=== PATIENT | female | born 1955 | race Caucasian/White ===

== ENCOUNTER → 2022-07-30 | Outpatient (CLI) | payer MEDICARE ==
[~2022-07-30] MED LIST: CENT1TAB PO; D-MAPOW4 XX; IBUP-1114 PO; LETR2.5T2 PO; OMEP-173 PO; POTA-151 PO; ROPI0.253 PO
== END ==
LOC: M WHC 07:44
PROVIDERS: ATTEND Specialist
DX: Z85.3 Personal history of malignant neoplasm of breast (principal); Z53.9 Procedure and treatment not carried out, unspecified reason

== ENCOUNTER 2022-08-23 15:49 | Inpatient (IN) | payer MEDICARE ==
[~2022-08-23] VITALS: Ht 157.5 cm; Wt 48.0 kg
[~2022-08-23 15:49] MED LIST changes: -FLUO10CA18 PO; -HYDR-643 PO; -IBUP-1764 PO; -POTA1TAB24 PO
[2022-08-23] MEDS ORDERED: HYDR-643 PO ×2 (16:04→18:48)
[2022-08-23] MEDS ORDERED: FLUO10CA18 PO (16:04)
[2022-08-23 16:44] LABS: BASO % 0.6 % (0.0-1.0); EOS # 0.1 10^3/uL (0.0-0.5); HEMATOCRIT 36.2 % (36.0-47.0); HEMOGLOBIN 12.6 g/dl (12.0-15.5); LYMPH # 0.9 10^3/uL (1.5-5.0); MEAN CORPUSCULAR HGB CONC 34.8 g/dl (32.0-36.5); MEAN CORPUSCULAR VOLUME 89.2 fl (80.0-96.0); MONO # 0.6 10^3/uL (0.0-0.8); NEUTROPHILS # 3.6 10^3/uL (1.5-8.5); NEUTROPHILS % 69.2 % (36.0-66.0); RED BLOOD COUNT 4.06 10^6/uL (4.00-5.40); WHITE BLOOD COUNT 5.2 10^3/uL (4.0-10.0)
[2022-08-23 17:26] LABS: PLATELET COUNT, AUTOMATED 73 10^3/uL (150-450)
[2022-08-23 17:51] LABS: ALBUMIN 3.3 GM/DL (3.2-5.2); ALT/SGPT 78 U/L (12-78); BILIRUBIN,DIRECT 0.1 MG/DL (0.0-0.2); BILIRUBIN,TOTAL 0.4 MG/DL (0.2-1.0); BLOOD UREA NITROGEN 7 MG/DL (7-18); CALCIUM LEVEL 8.5 MG/DL (8.8-10.2); CARBON DIOXIDE LEVEL 23 MEQ/L (21-32); CHLORIDE LEVEL 115 MEQ/L (98-107); CREATININE FOR GFR 0.83 MG/DL (0.55-1.30); FREE T4 1.08 NG/DL (0.76-1.46); GLOMERULAR FILTRATION RATE > 60.0 (>45); GLUCOSE, FASTING 131 MG/DL (70-100); PHOSPHORUS LEVEL 1.9 MG/DL (2.5-4.9); POTASSIUM SERUM 2.1 MEQ/L (3.5-5.1); SODIUM LEVEL 145 MEQ/L (136-145); TOTAL PROTEIN 6.9 GM/DL (6.4-8.2)
[2022-08-23] MEDS ORDERED: NEUTRA-PHOS 1.5 GM PACKET PO ONE (17:55)
[2022-08-23] MEDS ORDERED: KCL 10MEQ/100ML SWI (KRUN) 10 MEQ in IV 1 EA IV ONE (17:55)
[2022-08-23] MEDS ORDERED: POTASSIUM CHLORIDE 10MEQ SR TABLET PO ONE (17:55)
[2022-08-23] MEDS ORDERED: ONDANSETRON 4MG 2ML VIAL IV PRN (18:35)
[2022-08-23] MEDS ORDERED: IBUP-1764 PO (18:48)
[2022-08-23] MEDS ORDERED: LETR2.5T2 PO (18:51)
[2022-08-23] MEDS ORDERED: HOME MED LIST COMPLETE! XX SCH (18:55)
[2022-08-23 19:34] LABS: RSV AMPLIFICATION NEGATIVE (NEGATIVE)
[2022-08-23] MEDS ORDERED: rOPINIRole 0.25 MG TAB(REQUIP) PO SCH (21:00)
[2022-08-23] MEDS: POTASSIUM CHLORIDE 10MEQ SR TABLET PO SCH (21:25)
[2022-08-23 21:40] VITALS: BP 162/80
[2022-08-23 23:40] LABS: BLOOD UREA NITROGEN 7 MG/DL (7-18); CALCIUM LEVEL 8.3 MG/DL (8.8-10.2); CARBON DIOXIDE LEVEL 20 MEQ/L (21-32); CHLORIDE LEVEL 117 MEQ/L (98-107); CREATININE FOR GFR 0.67 MG/DL (0.55-1.30); GLOMERULAR FILTRATION RATE > 60.0 (>45); GLUCOSE, FASTING 137 MG/DL (70-100); POTASSIUM SERUM 2.6 MEQ/L (3.5-5.1); SODIUM LEVEL 146 MEQ/L (136-145)
[2022-08-24] VITALS: BP 148/71
[2022-08-24] MEDS ORDERED: POTASSIUM CHLORIDE 10MEQ SR TABLET PO ONE
[2022-08-24] MEDS ORDERED: SODIUM CHLORIDE 0.9% INJ 10 ML SYR IV PRN (02:10)
[2022-08-24 04:00] VITALS: BP 127/58
[2022-08-24 04:08] LABS: HEMATOCRIT 35.7 % (36.0-47.0); MEAN CORPUSCULAR HEMOGLOBIN 30.5 pg (27.0-33.0); MEAN CORPUSCULAR HGB CONC 33.6 g/dl (32.0-36.5); MEAN CORPUSCULAR VOLUME 90.6 fl (80.0-96.0); RED BLOOD COUNT 3.94 10^6/uL (4.00-5.40); WHITE BLOOD COUNT 3.9 10^3/uL (4.0-10.0)
[2022-08-24 04:12] LABS: PLATELET COUNT, AUTOMATED 65 10^3/uL (150-450)
[2022-08-24 04:41] LABS: BLOOD UREA NITROGEN 7 MG/DL (7-18); CALCIUM LEVEL 8.2 MG/DL (8.8-10.2); CARBON DIOXIDE LEVEL 23 MEQ/L (21-32); CHLORIDE LEVEL 118 MEQ/L (98-107); CREATININE FOR GFR 0.67 MG/DL (0.55-1.30); GLOMERULAR FILTRATION RATE > 60.0 (>45); GLUCOSE, FASTING 103 MG/DL (70-100); PHOSPHORUS LEVEL 2.5 MG/DL (2.5-4.9); POTASSIUM SERUM 3.2 MEQ/L (3.5-5.1); SODIUM LEVEL 145 MEQ/L (136-145)
[2022-08-24 07:45] VITALS: BP 157/43
[2022-08-24] MEDS: POTASSIUM CHLORIDE 10MEQ SR TABLET PO SCH (08:14)
[2022-08-24] MEDS: KCL 10MEQ/100ML SWI (KRUN) 10 MEQ in IV 1 EA IV SCH ×2 (08:16→09:30)
[2022-08-24] MEDS ORDERED: LETROZOLE 2.5 MG TAB PO SCH (09:00)
[2022-08-24] MEDS ORDERED: SODIUM CHLORIDE 0.9% INJ 10 ML SYR IV SCH (09:00)
[2022-08-24] MEDS ORDERED: FLUoxetine 10 MG CAP PO SCH (09:00)
[2022-08-24] MEDS ORDERED: POTA1TAB24 PO (10:56)
[2022-08-24] MEDS ORDERED: OMEPRAZOLE 20MG CAP PO SCH (21:00)
== END 2022-08-24 12:07 | disposition home or self-care (01) | DRG 641 ==
LOC: M ED 15:49 → M ED INP 18:35 → ENRESERV 19:50 → M PCU 21:41
PROVIDERS: ADMIT Internal Medicine Nephrology; ATTEND Internal Medicine Nephrology
DX: E87.6 Hypokalemia (principal); F41.9 Anxiety disorder, unspecified; F32.A Depression, unspecified; K21.9 Gastro-esophageal reflux disease without esophagitis; G25.81 Restless legs syndrome; I10 Essential (primary) hypertension; M81.0 Age-related osteoporosis without current pathological fracture; B02.9 Zoster without complications; Z92.21 Personal history of antineoplastic chemotherapy; Z92.3 Personal history of irradiation; Z85.3 Personal history of malignant neoplasm of breast; Z88.0 Allergy status to penicillin; Z91.013 Allergy to seafood; Z91.012 Allergy to eggs; Z91.018 Allergy to other foods; Z88.2 Allergy status to sulfonamides; Z88.8 Allergy status to other drugs, medicaments and biological substances; Z79.899 Other long term (current) drug therapy

== ENCOUNTER → 2022-08-23 | Outpatient (CLI) | payer MEDICARE ==
[~2022-08-23] MED LIST changes: +FLUO10CA18 PO; +HYDR-643 PO; +IBUP-1764 PO; +POTA1TAB24 PO
[2022-08-23 13:21] LABS: BASO % 0.8 % (0.0-1.0); EOS # 0.1 10^3/uL (0.0-0.5); EOS % 1.4 % (0.0-3.0); HEMATOCRIT 40.5 % (36.0-47.0); HEMOGLOBIN 13.8 g/dl (12.0-15.5); LYMPH # 0.8 10^3/uL (1.5-5.0); MEAN CORPUSCULAR HEMOGLOBIN 30.9 pg (27.0-33.0); MEAN CORPUSCULAR HGB CONC 34.1 g/dl (32.0-36.5); MEAN CORPUSCULAR VOLUME 90.6 fl (80.0-96.0); MONO # 0.6 10^3/uL (0.0-0.8); MONO % 11.9 % (2.0-8.0); NEUTROPHILS # 3.3 10^3/uL (1.5-8.5); NEUTROPHILS % 68.5 % (36.0-66.0); RED BLOOD COUNT 4.47 10^6/uL (4.00-5.40); WHITE BLOOD COUNT 4.9 10^3/uL (4.0-10.0)
[2022-08-23 13:24] LABS: PLATELET COUNT, AUTOMATED 82 10^3/uL (150-450)
[2022-08-23 14:59] LABS: ALBUMIN 3.5 GM/DL (3.2-5.2); ALT/SGPT 79 U/L (12-78); BILIRUBIN,TOTAL 0.6 MG/DL (0.2-1.0); BLOOD UREA NITROGEN 6 MG/DL (7-18); CALCIUM LEVEL 8.9 MG/DL (8.8-10.2); CARBON DIOXIDE LEVEL 26 MEQ/L (21-32); CHLORIDE LEVEL 112 MEQ/L (98-107); CHOLESTEROL LEVEL 123 MG/DL (<200); CHOLESTEROL RISK RATIO 5.125 (<5); CREATININE FOR GFR 0.77 MG/DL (0.55-1.30); GLOMERULAR FILTRATION RATE > 60.0 (>45); GLUCOSE, FASTING 121 MG/DL (70-100); HDL CHOLESTEROL 24 MG/DL (>40); LDL CHOLESTEROL 74 MG/DL (<100); NON-HDL-C 99 MG/DL; POTASSIUM SERUM 2.1 MEQ/L (3.5-5.1); SODIUM LEVEL 145 MEQ/L (136-145); TOTAL PROTEIN 7.3 GM/DL (6.4-8.2); TRIGLYCERIDES LEVEL 127 MG/DL (<150)
== END ==
LOC: M PLALAB 10:14
PROVIDERS: ATTEND Nurse Practitioner Family
DX: R03.0 Elevated blood-pressure reading, without diagnosis of hypertension (principal)

== ENCOUNTER → 2022-08-30 | Outpatient (REF) | payer MEDICARE ==
[~2022-08-30] MED LIST changes: +FLUO10CA18 PO; +HYDR-643 PO; +IBUP-1764 PO; +POTA1TAB24 PO
[2022-08-30 11:34] LABS: BASO % 0.7 % (0.0-1.0); EOS # 0.1 10^3/uL (0.0-0.5); EOS % 1.3 % (0.0-3.0); HEMOGLOBIN 14.5 g/dl (12.0-15.5); LYMPH # 0.9 10^3/uL (1.5-5.0); LYMPH % 20.6 % (24.0-44.0); MEAN CORPUSCULAR HEMOGLOBIN 30.7 pg (27.0-33.0); MONO # 0.6 10^3/uL (0.0-0.8); MONO % 13.2 % (2.0-8.0); NEUTROPHILS # 2.9 10^3/uL (1.5-8.5); RED BLOOD COUNT 4.73 10^6/uL (4.00-5.40); WHITE BLOOD COUNT 4.5 10^3/uL (4.0-10.0)
[2022-08-30 11:35] LABS: PLATELET COUNT, AUTOMATED 84 10^3/uL (150-450)
[2022-08-30 12:44] LABS: ALBUMIN 3.5 GM/DL (3.2-5.2); ALT/SGPT 95 U/L (12-78); BILIRUBIN,TOTAL 0.6 MG/DL (0.2-1.0); BLOOD UREA NITROGEN 6 MG/DL (7-18); CALCIUM LEVEL 9.3 MG/DL (8.8-10.2); CARBON DIOXIDE LEVEL 25 MEQ/L (21-32); CHLORIDE LEVEL 108 MEQ/L (98-107); CREATININE FOR GFR 0.87 MG/DL (0.55-1.30); GLOMERULAR FILTRATION RATE > 60.0 (>45); GLUCOSE, FASTING 105 MG/DL (70-100); POTASSIUM SERUM 4.9 MEQ/L (3.5-5.1); SODIUM LEVEL 139 MEQ/L (136-145); TOTAL PROTEIN 7.5 GM/DL (6.4-8.2)
== END ==
LOC: M LABDRAWC 10:09 → M PLALAB 10:09
PROVIDERS: ATTEND Registered Nurse
DX: E87.6 Hypokalemia (principal)

== ENCOUNTER → 2022-11-14 | Outpatient (CLI) | payer MEDICARE ==
[2022-11-14 17:39] LABS: BASO % 0.2 % (0.0-1.0); HEMATOCRIT 40.5 % (36.0-47.0); HEMOGLOBIN 13.5 g/dl (12.0-15.5); LYMPH # 0.7 10^3/uL (1.5-5.0); LYMPH % 11.6 % (24.0-44.0); MEAN CORPUSCULAR HEMOGLOBIN 30.3 pg (27.0-33.0); MEAN CORPUSCULAR HGB CONC 33.3 g/dl (32.0-36.5); MEAN CORPUSCULAR VOLUME 90.8 fl (80.0-96.0); MONO # 0.5 10^3/uL (0.0-0.8); MONO % 8.1 % (2.0-8.0); NEUTROPHILS % 79.8 % (36.0-66.0); RED BLOOD COUNT 4.46 10^6/uL (4.00-5.40); WHITE BLOOD COUNT 6.3 10^3/uL (4.0-10.0)
[2022-11-14 17:46] LABS: PLATELET COUNT, AUTOMATED 78 10^3/uL (150-450)
[2022-11-14 17:55] LABS: ERYTHROCYTE SEDIMENTATION RATE 12 mm/hr (0-30)
[2022-11-14 18:02] LABS: C REACTIVE PROTEIN QUANTITATIV < 0.40 MG/DL (<1.0)
[2022-11-14 18:04] LABS: ALBUMIN 3.5 G/DL (3.2-5.2); ALKALINE PHOSPHATASE 203 U/L (46-116); ALT/SGPT 153 U/L (7.0-40); AST/SGOT 117 U/L (<34); BILIRUBIN,TOTAL 0.4 MG/DL (0.3-1.2); BLOOD UREA NITROGEN 11 MG/DL (9-23); CALCIUM LEVEL 8.8 MG/DL (8.3-10.6); CARBON DIOXIDE LEVEL 24 MMOL/L (20-31); CHLORIDE LEVEL 106 MMOL/L (98-107); CREATININE FOR GFR 0.74 MG/DL (0.55-1.30); FREE T4 1.06 NG/DL (0.89-1.76); GLOMERULAR FILTRATION RATE > 60.0 (>45); GLUCOSE, FASTING 119 MG/DL (74-106); SODIUM LEVEL 141 MMOL/L (136-145); THYROID STIMULATING HORMONE 0.745 uIU/ML (0.55-4.78)
== END ==
LOC: M PLALAB 16:26
PROVIDERS: ATTEND Nurse Practitioner Family
DX: R21 Rash and other nonspecific skin eruption (principal)

== ENCOUNTER → 2022-11-14 | Outpatient (CLI) | payer MEDICARE ==
[2022-11-14 17:50] LABS: BASO % 0.3 % (0.0-1.0); EOS % 0.2 % (0.0-3.0); HEMATOCRIT 41.2 % (36.0-47.0); HEMOGLOBIN 13.9 g/dl (12.0-15.5); LYMPH # 0.8 10^3/uL (1.5-5.0); LYMPH % 11.7 % (24.0-44.0); MEAN CORPUSCULAR HEMOGLOBIN 30.5 pg (27.0-33.0); MEAN CORPUSCULAR HGB CONC 33.7 g/dl (32.0-36.5); MEAN CORPUSCULAR VOLUME 90.5 fl (80.0-96.0); MONO # 0.5 10^3/uL (0.0-0.8); NEUTROPHILS # 5.2 10^3/uL (1.5-8.5); NEUTROPHILS % 79.5 % (36.0-66.0); RED BLOOD COUNT 4.55 10^6/uL (4.00-5.40); WHITE BLOOD COUNT 6.5 10^3/uL (4.0-10.0)
[2022-11-14 17:51] LABS: PLATELET COUNT, AUTOMATED 77 10^3/uL (150-450)
[2022-11-14 18:20] LABS: ALBUMIN 3.5 G/DL (3.2-5.2); ALKALINE PHOSPHATASE 200 U/L (46-116); ALT/SGPT 151 U/L (7.0-40); AST/SGOT 115 U/L (<34); BILIRUBIN,TOTAL 0.4 MG/DL (0.3-1.2); BLOOD UREA NITROGEN 11 MG/DL (9-23); CALCIUM LEVEL 8.8 MG/DL (8.3-10.6); CARBON DIOXIDE LEVEL 25 MMOL/L (20-31); CHLORIDE LEVEL 106 MMOL/L (98-107); CREATININE FOR GFR 0.73 MG/DL (0.55-1.30); GLOMERULAR FILTRATION RATE > 60.0 (>45); GLUCOSE, FASTING 123 MG/DL (74-106); POTASSIUM SERUM 2.9 MMOL/L (3.5-5.1); SODIUM LEVEL 141 MMOL/L (136-145); TOTAL PROTEIN 6.9 G/DL (5.7-8.2)
== END ==
LOC: M PLALAB 16:28
PROVIDERS: ATTEND Registered Nurse
DX: R94.5 Abnormal results of liver function studies (principal)

== ENCOUNTER → 2022-11-15 | Outpatient (REF) | payer MEDICARE | LOC: M LAB REF 16:53 | PROVIDERS: ATTEND Internal Medicine Nephrology | DX: E87.6 Hypokalemia (principal); D35.00 Benign neoplasm of unspecified adrenal gland; I15.0 Renovascular hypertension ==

== ENCOUNTER → 2022-12-04 | Outpatient (CLI) | payer MEDICARE ==
[~2022-12-04] MED LIST changes: +ISOVUE-370 76% 100ML VIAL As Ordered ONE
== END ==
LOC: M RAD 13:25
PROVIDERS: ATTEND Internal Medicine Nephrology
DX: N28.1 Cyst of kidney, acquired (principal); R16.1 Splenomegaly, not elsewhere classified
CPT/HCPCS: 74160; Q9967

== ENCOUNTER → 2023-01-16 | Outpatient (CLI) | payer MEDICARE ==
[~2023-01-16] MED LIST changes: -ISOVUE-370 76% 100ML VIAL As Ordered ONE; +LOSA50TA28; +POTA10CA33; +TRAM50TA2
== END ==
LOC: M RAD 11:00
PROVIDERS: ATTEND Nurse Practitioner
DX: M25.519 Pain in unspecified shoulder (principal); C50.919 Malignant neoplasm of unspecified site of unspecified female breast; M50.30 Other cervical disc degeneration, unspecified cervical region; M50.322 Other cervical disc degeneration at C5-C6 level; M50.323 Other cervical disc degeneration at C6-C7 level; M25.78 Osteophyte, vertebrae; M47.812 Spondylosis without myelopathy or radiculopathy, cervical region; M19.012 Primary osteoarthritis, left shoulder

== ENCOUNTER → 2023-01-24 | Outpatient (CLI) | payer MEDICARE | LOC: M WHC 09:15 | PROVIDERS: ATTEND Family Medicine | DX: Z13.820 Encounter for screening for osteoporosis (principal); M85.851 Other specified disorders of bone density and structure, right thigh; M85.852 Other specified disorders of bone density and structure, left thigh ==

== ENCOUNTER → 2023-02-14 | Outpatient (CLI) | payer MEDICARE ==
[~2023-02-14] MED LIST changes: +PROHANCE 279.3MG/ML 5ML VIAL ONE
== END ==
LOC: M PLAIMG 09:15
PROVIDERS: ATTEND Nurse Practitioner
DX: C50.912 Malignant neoplasm of unspecified site of left female breast (principal)
CPT/HCPCS: A9576; C8908

== ENCOUNTER → 2023-03-04 | Outpatient (CLI) | payer MEDICARE ==
[~2023-03-04] MED LIST changes: -PROHANCE 279.3MG/ML 5ML VIAL ONE
[2023-03-04 15:41] LABS: BASO # 0.1 10^3/uL (0.0-0.2); BASO % 0.5 % (0.0-1.0); EOS % 0.3 % (0.0-3.0); HEMATOCRIT 47.5 % (36.0-47.0); HEMOGLOBIN 15.5 g/dl (12.0-15.5); LYMPH # 1.1 10^3/uL (1.5-5.0); LYMPH % 10.4 % (24.0-44.0); MEAN CORPUSCULAR HEMOGLOBIN 30.7 pg (27.0-33.0); MEAN CORPUSCULAR HGB CONC 32.6 g/dl (32.0-36.5); MEAN CORPUSCULAR VOLUME 94.1 fl (80.0-96.0); MONO # 1.1 10^3/uL (0.0-0.8); MONO % 10.1 % (2.0-8.0); NEUTROPHILS # 8.3 10^3/uL (1.5-8.5); NEUTROPHILS % 78.3 % (36.0-66.0); RED BLOOD COUNT 5.05 10^6/uL (4.00-5.40); WHITE BLOOD COUNT 10.6 10^3/uL (4.0-10.0)
[2023-03-04 15:46] LABS: PLATELET COUNT, AUTOMATED 82 10^3/uL (150-450)
[2023-03-04 15:55] LABS: ALBUMIN 3.9 G/DL (3.2-5.2); ALKALINE PHOSPHATASE 144 U/L (46-116); ALT/SGPT 176 U/L (7.0-40); AST/SGOT 137 U/L (<34); BILIRUBIN,TOTAL 0.7 MG/DL (0.3-1.2); BLOOD UREA NITROGEN 12 MG/DL (9-23); CALCIUM LEVEL 9.1 MG/DL (8.3-10.6); CARBON DIOXIDE LEVEL 23 MMOL/L (20-31); CHLORIDE LEVEL 107 MMOL/L (98-107); GLOMERULAR FILTRATION RATE > 60.0 (>45); GLUCOSE, FASTING 87 MG/DL (74-106); POTASSIUM SERUM 4.7 MMOL/L (3.5-5.1); RHEUMATOID FACTOR QUANT 14.5 IU/ML (<14); SODIUM LEVEL 137 MMOL/L (136-145); TOTAL PROTEIN 7.3 G/DL (5.7-8.2)
[2023-03-04 15:57] LABS: ERYTHROCYTE SEDIMENTATION RATE 25 mm/hr (0-30)
[2023-03-04 15:59] LABS: FOLATE 21.94 NG/ML (>5.4); THYROID STIMULATING HORMONE 1.235 uIU/ML (0.55-4.78)
[2023-03-04 16:00] LABS: VITAMIN B12 LEVEL 748 PG/ML (211-911)
[2023-03-04 16:37] LABS: HEMOGLOBIN A1c 5.5 % (4.0-6.0)
== END ==
LOC: M PLALAB 10:45
PROVIDERS: ATTEND Psychiatry & Neurology Neurology
DX: R41.89 Other symptoms and signs involving cognitive functions and awareness (principal)

== ENCOUNTER → 2023-03-11 | Outpatient (CLI) | payer MEDICARE ==
[2023-03-11 14:25] LABS: PHOSPHORUS LEVEL 3.3 MG/DL (2.4-5.1)
[2023-03-11 14:27] LABS: IRON (FE) 63 UG/DL (50-170); PERCENT SATURATION 16.9 % (13.2-45.0); TOTAL IRON BINDING CAPACITY 372 UG/DL (250-425)
[2023-03-11 14:28] LABS: FERRITIN 129.9 NG/ML (7.3-270.7)
[2023-03-11 14:46] LABS: HEPATITIS B SURFACE ANTIGEN NEGATIVE (NEGATIVE)
[2023-03-11 15:06] LABS: HEPATITIS B CORE ANTIBODY IGM NEGATIVE (NEGATIVE)
[2023-03-11 15:19] LABS: HEPATITIS C VIRUS ABY INDEX > 11.0 INDEX (<0.8)
== END ==
LOC: M PLALAB 09:49
PROVIDERS: ATTEND Registered Nurse
DX: R94.5 Abnormal results of liver function studies (principal)

== ENCOUNTER → 2023-04-15 | Outpatient (CLI) | payer MEDICARE ==
[~2023-04-15] MED LIST changes: +LOSA25TA13
== END ==
LOC: M RAD 08:43
PROVIDERS: ATTEND Physician Assistant
DX: R94.5 Abnormal results of liver function studies (principal); K76.89 Other specified diseases of liver; N28.1 Cyst of kidney, acquired

== ENCOUNTER → 2023-05-08 | Outpatient (CLI) | payer MEDICARE ==
[~2023-05-08] MED LIST changes: -POTA10CA33; +POTA10CA60
[2023-05-08 14:34] LABS: HEPATITIS B SURFACE ANTIBODY NEGATIVE (POSITIVE)
[2023-05-08 14:59] LABS: HIV 1&2 SCREEN NEGATIVE (NEGATIVE)
== END ==
LOC: M PLALAB 09:33
PROVIDERS: ATTEND Internal Medicine Infectious Disease
DX: B18.2 Chronic viral hepatitis C (principal)

== ENCOUNTER → 2023-07-18 | Outpatient (CLI) | payer MEDICARE ==
[~2023-07-18] MED LIST changes: -ROPI0.253 PO; +ROPI5TAB19 PO
== END ==
LOC: M RAD 11:08
PROVIDERS: ATTEND Registered Nurse
DX: M54.2 Cervicalgia (principal); M54.50 Low back pain, unspecified; M47.812 Spondylosis without myelopathy or radiculopathy, cervical region; M47.817 Spondylosis without myelopathy or radiculopathy, lumbosacral region; M47.814 Spondylosis without myelopathy or radiculopathy, thoracic region; M41.84 Other forms of scoliosis, thoracic region

== ENCOUNTER → 2023-10-22 | Outpatient (CLI) | payer MEDICARE ==
[~2023-10-22] MED LIST changes: +NOXI1TAB PO; +OMEG10002 PO; +TIZA10TA
[2023-10-22 14:06] LABS: ALBUMIN 3.8 G/DL (3.2-5.2); ALKALINE PHOSPHATASE 129 U/L (46-116); ALT/SGPT 49 U/L (7.0-40); AST/SGOT 38 U/L (<34); BASO % 0.6 % (0.0-1.0); BILIRUBIN,TOTAL 0.4 MG/DL (0.3-1.2); BLOOD UREA NITROGEN 14 MG/DL (9-23); CALCIUM LEVEL 9.2 MG/DL (8.3-10.6); CARBON DIOXIDE LEVEL 26 MMOL/L (20-31); CHLORIDE LEVEL 107 MMOL/L (98-107); CREATININE FOR GFR 0.83 MG/DL (0.55-1.30); EOS # 0.1 10^3/uL (0.0-0.5); EOS % 1.6 % (0.0-3.0); GLOMERULAR FILTRATION RATE > 60.0 (>45); GLUCOSE, FASTING 95 MG/DL (74-106); HEMATOCRIT 41.2 % (36.0-47.0); HEMOGLOBIN 13.8 g/dl (12.0-15.5); LYMPH # 1.4 10^3/uL (1.5-5.0); LYMPH % 28.2 % (24.0-44.0); MEAN CORPUSCULAR HEMOGLOBIN 30.1 pg (27.0-33.0); MEAN CORPUSCULAR HGB CONC 33.5 g/dl (32.0-36.5); MONO # 0.5 10^3/uL (0.0-0.8); MONO % 11.1 % (2.0-8.0); NEUTROPHILS # 2.8 10^3/uL (1.5-8.5); NEUTROPHILS % 58.3 % (36.0-66.0); POTASSIUM SERUM 4.5 MMOL/L (3.5-5.1); RED BLOOD COUNT 4.58 10^6/uL (4.00-5.40); SODIUM LEVEL 139 MMOL/L (136-145); WHITE BLOOD COUNT 4.9 10^3/uL (4.0-10.0)
[2023-10-22 14:09] LABS: PLATELET COUNT, AUTOMATED 95 10^3/uL (150-450)
[2023-10-23 23:07] LABS: HEPATITIS C QUANTITATION HCV Not Detected IU/mL (.)
== END ==
LOC: M PLALAB 10:32
PROVIDERS: ATTEND Internal Medicine Infectious Disease
DX: B18.2 Chronic viral hepatitis C (principal)

== ENCOUNTER → 2023-10-24 | Outpatient (CLI) | payer MEDICARE ==
[~2023-10-24] VITALS: Ht 157.5 cm; Wt 57.2 kg
[~2023-10-24] MED LIST changes: +LIDOCAINE 1% MDV 20ML VIAL As Ordered ONE; +LIDOCAINE W/EPINEPHRINE 1% 20ML VIAL As Ordered ONE; +MIDAZOLAM INJ 2MG/2ML VIAL As Ordered ONE; +NS 1,000 ML IV SCH; +ceFAZolin 2 GM/D5W 50 ML IV BAG As Ordered ONE; +ceFAZolin SOD 2 GM in IV 1 EA IV ONE; +fentaNYL 100 MCG/2 ML INJECTION As Ordered ONE
[2023-10-24 08:30] VITALS: TEMP 96.7
[2023-10-24 11:10] VITALS: BP 181/87; O2SAT 98
== END ==
LOC: M IRPRO 08:18
PROVIDERS: ATTEND Nurse Practitioner
DX: C50.912 Malignant neoplasm of unspecified site of left female breast (principal)
CPT/HCPCS: 99152; 99153; J0690; J2250; J3010

== ENCOUNTER → 2024-02-28 | Outpatient (CLI) | payer MEDICARE ==
[~2024-02-28] MED LIST changes: -LIDOCAINE 1% MDV 20ML VIAL As Ordered ONE; -LIDOCAINE W/EPINEPHRINE 1% 20ML VIAL As Ordered ONE; -MIDAZOLAM INJ 2MG/2ML VIAL As Ordered ONE; -NS 1,000 ML IV SCH; -ceFAZolin 2 GM/D5W 50 ML IV BAG As Ordered ONE; -ceFAZolin SOD 2 GM in IV 1 EA IV ONE; -fentaNYL 100 MCG/2 ML INJECTION As Ordered ONE
== END ==
LOC: M RAD 12:08
PROVIDERS: ATTEND Physician Assistant
DX: M47.816 Spondylosis without myelopathy or radiculopathy, lumbar region (principal); M51.36 Other intervertebral disc degeneration, lumbar region

== ENCOUNTER → 2024-06-08 | Outpatient (CLI) | payer MEDICARE ==
[~2024-06-08] MED LIST changes: +DEUC6TAB; +FLUO-290 PO; -FLUO10CA18 PO; -POTA10CA60; +POTA10CA70
[2024-06-08 13:39] LABS: BASO % 0.6 % (0.0-1.0); EOS # 0.1 10^3/uL (0.0-0.5); EOS % 1.9 % (0.0-3.0); HEMATOCRIT 43.1 % (36.0-47.0); HEMOGLOBIN 14.5 g/dl (12.0-15.5); LYMPH # 1.8 10^3/uL (1.5-5.0); LYMPH % 28.4 % (24.0-44.0); MEAN CORPUSCULAR HEMOGLOBIN 30.2 pg (27.0-33.0); MEAN CORPUSCULAR HGB CONC 33.6 g/dl (32.0-36.5); MEAN CORPUSCULAR VOLUME 89.8 fl (80.0-96.0); MONO # 0.6 10^3/uL (0.0-0.8); MONO % 9.9 % (2.0-8.0); NEUTROPHILS # 3.8 10^3/uL (1.5-8.5); NEUTROPHILS % 58.9 % (36.0-66.0); PLATELET COUNT, AUTOMATED 110 10^3/uL (150-450); WHITE BLOOD COUNT 6.5 10^3/uL (4.0-10.0)
[2024-06-08 13:56] LABS: ALBUMIN 3.9 G/DL (3.2-5.2); BILIRUBIN,TOTAL 0.4 MG/DL (0.3-1.2); CALCIUM LEVEL 9.7 MG/DL (8.3-10.6); CHOLESTEROL RISK RATIO 6.69 (<5); CREATININE FOR GFR 1.15 MG/DL (0.55-1.30); GLOMERULAR FILTRATION RATE 49.8 (>45); HDL CHOLESTEROL 31.2 MG/DL (>40); LDL CHOLESTEROL 124.6 MG/DL (<100); NON-HDL-C 177.8 MG/DL; POTASSIUM SERUM 5.1 MMOL/L (3.5-5.1); TOTAL PROTEIN 7.2 G/DL (5.7-8.2)
== END ==
LOC: M PLALAB 09:52
PROVIDERS: ATTEND Registered Nurse
DX: I10 Essential (primary) hypertension (principal)

== ENCOUNTER → 2024-07-29 | Outpatient (REF) | payer MEDICARE ==
[~2024-07-29] MED LIST changes: +CHLO125TA; +MAGN400C PO; +OMEP1CAP73 PO
[2024-07-29 18:08] LABS: ALBUMIN 4.1 G/DL (3.2-5.2); ALKALINE PHOSPHATASE 166 U/L (46-116); ALT/SGPT 40 U/L (7.0-40); AST/SGOT 25 U/L (<34); BILIRUBIN,DIRECT < 0.1 MG/DL (<0.4); BILIRUBIN,TOTAL 0.2 MG/DL (0.3-1.2); TOTAL PROTEIN 7.5 G/DL (5.7-8.2)
== END ==
LOC: M LAB REF 17:27
PROVIDERS: ATTEND Internal Medicine Nephrology
DX: R94.5 Abnormal results of liver function studies (principal)

== ENCOUNTER 2024-08-03 11:06 | Emergency (ER) | payer MEDICARE ==
[~2024-08-03] VITALS: Ht 154.9 cm; Wt 61.7 kg
[2024-08-03 11:06] VITALS: BP 182/88; TEMP 97.2; O2SAT 95
[~2024-08-03 11:06] MED LIST changes: -CHLO125TA; -MAGN400C PO; -OMEP1CAP73 PO
[2024-08-03] MEDS ORDERED: OMEP1CAP73 PO (11:32)
[2024-08-03] MEDS ORDERED: CHLO125TA (11:32)
[2024-08-03] MEDS ORDERED: MAGN400C PO (11:32)
== END 2024-08-03 13:50 | disposition left against medical advice (07) ==
LOC: M ED 11:06
DX: Z53.21 Procedure and treatment not carried out due to patient leaving prior to being seen by health care provider (principal)

== ENCOUNTER → 2024-09-06 | Outpatient (CLI) | payer MEDICARE ==
[~2024-09-06] MED LIST changes: +CHLO125TA; +MAGN400C PO; +OMEP1CAP73 PO
== END ==
LOC: M RAD 13:57
PROVIDERS: ATTEND Internal Medicine Nephrology
DX: N17.9 Acute kidney failure, unspecified (principal); N28.1 Cyst of kidney, acquired

== ENCOUNTER 2024-10-04 04:53 | Emergency (ER) | payer MEDICARE ==
[~2024-10-04] VITALS: Ht 157.5 cm; Wt 61.9 kg
[2024-10-04] MEDS: cefTRIAXone SOD 2 GM in DEXTROSE 5% (D5W) ADV/MINI-BAG 50 ML IV ONE (05:45)
[2024-10-04 06:22] LABS: BASO % 0.3 % (0.0-1.0); EOS # 0.1 10^3/uL (0.0-0.5); EOS % 0.7 % (0.0-3.0); HEMATOCRIT 38.8 % (36.0-47.0); HEMOGLOBIN 12.9 g/dl (12.0-15.5); LYMPH % 10.2 % (24.0-44.0); MEAN CORPUSCULAR HEMOGLOBIN 29.8 pg (27.0-33.0); MEAN CORPUSCULAR HGB CONC 33.2 g/dl (32.0-36.5); MEAN CORPUSCULAR VOLUME 89.6 fl (80.0-96.0); MONO # 1.1 10^3/uL (0.0-0.8); MONO % 11.2 % (2.0-8.0); NEUTROPHILS # 7.6 10^3/uL (1.5-8.5); NEUTROPHILS % 77.2 % (36.0-66.0); PLATELET COUNT, AUTOMATED 101 10^3/uL (150-450); RED BLOOD COUNT 4.33 10^6/uL (4.00-5.40); WHITE BLOOD COUNT 9.8 10^3/uL (4.0-10.0)
[2024-10-04 06:41] LABS: ALBUMIN 3.5 G/DL (3.2-5.2); BILIRUBIN,DIRECT 0.1 MG/DL (<0.4); BILIRUBIN,TOTAL 0.4 MG/DL (0.3-1.2); CALCIUM LEVEL 9.3 MG/DL (8.3-10.6); CREATININE FOR GFR 1.34 MG/DL (0.55-1.30); GLOMERULAR FILTRATION RATE 41.6 (>39); POTASSIUM SERUM 4.2 MMOL/L (3.5-5.1); TOTAL PROTEIN 7.1 G/DL (5.7-8.2)
[2024-10-04 06:53] LABS: PROCALCITONIN 0.09 ng/ml
[2024-10-04] MEDS: NS 1,000 ML IV ONE (06:57)
[2024-10-04] MEDS ORDERED: LOSA100T46 (07:21)
[2024-10-04] MEDS ORDERED: OMEP-173 (07:21)
[2024-10-04] MEDS ORDERED: TIZA4CAP (07:21)
[2024-10-04] MEDS ORDERED: ROPI0.5T33 (07:21)
[2024-10-04] MEDS ORDERED: HYDR-3363 (07:21)
[2024-10-04] MEDS ORDERED: CEFD1CAP9 PO (08:22)
[2024-10-04 08:29] VITALS: BP 159/78; TEMP 98.4; O2SAT 98
== END 2024-10-04 08:45 | disposition left against medical advice (07) ==
LOC: M ED 04:53
DX: N13.4 Hydroureter (principal); N17.9 Acute kidney failure, unspecified; N10 Acute pyelonephritis; I10 Essential (primary) hypertension; N18.9 Chronic kidney disease, unspecified; C50.919 Malignant neoplasm of unspecified site of unspecified female breast; F17.200 Nicotine dependence, unspecified, uncomplicated; Z88.0 Allergy status to penicillin; Z88.2 Allergy status to sulfonamides; Z91.013 Allergy to seafood; Z91.048 Other nonmedicinal substance allergy status; Z91.012 Allergy to eggs; Z79.2 Long term (current) use of antibiotics; Z79.811 Long term (current) use of aromatase inhibitors; Z79.899 Other long term (current) drug therapy; Z53.9 Procedure and treatment not carried out, unspecified reason
CPT/HCPCS: 74176; 80048; 80076; 81001; 83605; 83690; 84145; 85025; 87040; 87088; 87186; 93005; 93041; 96365; 96366; 99284; J0696

== ENCOUNTER → 2024-10-27 | Outpatient (CLI) | payer MEDICARE ==
[~2024-10-27] MED LIST changes: +CEFD1CAP9 PO; +FUROSEMIDE 20MG/2ML VIAL As Ordered ONE; +HYDR-3363; +LOSA100T46; +OMEP-173; +ROPI0.5T33; +TIZA4CAP
== END ==
LOC: M RAD 06:52
PROVIDERS: ATTEND Urology
DX: N13.30 Unspecified hydronephrosis (principal)
CPT/HCPCS: 78708; A9562; J1940

== ENCOUNTER → 2024-11-15 | Outpatient (CLI) | payer MEDICARE ==
[~2024-11-15] MED LIST changes: -FUROSEMIDE 20MG/2ML VIAL As Ordered ONE
[2024-11-15 18:23] LABS: CALCIUM LEVEL 9.8 MG/DL (8.3-10.6); CREATININE FOR GFR 1.23 MG/DL (0.55-1.30); POTASSIUM SERUM 4.2 MMOL/L (3.5-5.1)
== END ==
LOC: M PLALAB 15:08
PROVIDERS: ATTEND Urology
DX: N13.30 Unspecified hydronephrosis (principal)

== ENCOUNTER → 2025-03-15 | Outpatient (CLI) | payer MEDICARE ==
[~2025-03-15] MED LIST changes: +MAPA500C PO; +MELA10CA6 PO; +RA B2500 PO; +[UNRECOGNIZED DRUG - OTHER] PO
[2025-03-15 14:19] LABS: CHOLESTEROL RISK RATIO 5.6 (<5); HDL CHOLESTEROL 35.3 MG/DL (>40); LDL CHOLESTEROL 110.1 MG/DL (<100); NON-HDL-C 162.7 MG/DL
[2025-03-15 14:28] LABS: HEMOGLOBIN A1c 5.6 % (4.0-6.0)
== END ==
LOC: M PLALAB 09:36
PROVIDERS: ATTEND Registered Nurse
DX: E78.2 Mixed hyperlipidemia (principal)

== ENCOUNTER → 2025-03-23 | Outpatient (CLI) | payer MEDICARE | LOC: M WHC 09:12 | PROVIDERS: ATTEND Nurse Practitioner Family | DX: Z13.820 Encounter for screening for osteoporosis (principal); M85.852 Other specified disorders of bone density and structure, left thigh; M81.0 Age-related osteoporosis without current pathological fracture ==

== ENCOUNTER → 2025-04-06 | Outpatient (CLI) | payer MEDICARE | LOC: M RAD 08:39 | PROVIDERS: ATTEND Nurse Practitioner Women's Health | DX: F17.210 Nicotine dependence, cigarettes, uncomplicated (principal); C50.912 Malignant neoplasm of unspecified site of left female breast; J43.9 Emphysema, unspecified; J47.9 Bronchiectasis, uncomplicated; J98.4 Other disorders of lung ==

== ENCOUNTER → 2025-05-25 | Outpatient (CLI) | payer MEDICARE | LOC: M WHC 07:40 | PROVIDERS: ATTEND Nurse Practitioner Women's Health | DX: C50.919 Malignant neoplasm of unspecified site of unspecified female breast (principal) ==

== ENCOUNTER → 2025-06-08 | Outpatient (CLI) | payer MEDICARE ==
[~2025-06-08] MED LIST changes: +ALEN70TA82; +FLORCAP6 PO
[2025-06-08 13:05] LABS: BASO # 0.0 10^3/uL (0.0-0.2); BASO % 0.4 % (0.0-1.0); EOS # 0.1 10^3/uL (0.0-0.5); EOS % 1.1 % (0.0-3.0); LYMPH # 1.4 10^3/uL (1.5-5.0); LYMPH % 14.1 % (24.0-44.0); MONO # 0.9 10^3/uL (0.0-0.8); MONO % 9.7 % (2.0-8.0); NEUTROPHILS # 7.2 10^3/uL (1.5-8.5); NEUTROPHILS % 74.2 % (36.0-66.0); PLATELET COUNT, AUTOMATED 213 10^3/uL (150-450)
[2025-06-08 13:46] LABS: ALT/SGPT 18.0 U/L (7.0-40); AST/SGOT 21.0 U/L (<34); CALCIUM LEVEL 9.1 MG/DL (8.3-10.6); CARBON DIOXIDE LEVEL 25.0 MMOL/L (20-31); CHLORIDE LEVEL 102.0 MMOL/L (98-107); CREATININE FOR GFR 1.09 MG/DL (0.55-1.30); GLOMERULAR FILTRATION RATE 54.7 (>39); MAGNESIUM LEVEL 2.0 MG/DL (1.8-2.4); POTASSIUM SERUM 4.4 MMOL/L (3.5-5.1); SODIUM LEVEL 140.0 MMOL/L (136-145)
[2025-06-08 13:47] LABS: TOTAL 25(OH) VITAMIN D 60.7 NG/ML (20.0-100.0)
== END ==
LOC: M PLALAB 10:49
PROVIDERS: ATTEND Registered Nurse
DX: M81.0 Age-related osteoporosis without current pathological fracture (principal); Z79.899 Other long term (current) drug therapy

== ENCOUNTER → 2025-08-12 | Outpatient (CLI) | payer MEDICARE ==
[2025-08-12 16:21] LABS: BASO # 0.1 10^3/uL (0.0-0.2); BASO % 0.5 % (0.0-1.0); EOS # 0.1 10^3/uL (0.0-0.5); EOS % 1.3 % (0.0-3.0); LYMPH # 1.7 10^3/uL (1.5-5.0); LYMPH % 15.2 % (24.0-44.0); MONO # 1.0 10^3/uL (0.0-0.8); MONO % 8.9 % (2.0-8.0); NEUTROPHILS # 8.1 10^3/uL (1.5-8.5); NEUTROPHILS % 73.6 % (36.0-66.0); PLATELET COUNT, AUTOMATED 213 10^3/uL (150-450)
[2025-08-12 16:49] LABS: ALT/SGPT 14.0 U/L (7.0-40); AST/SGOT 16.0 U/L (<34); CALCIUM LEVEL 8.8 MG/DL (8.3-10.6); CARBON DIOXIDE LEVEL 25.0 MMOL/L (20-31); CHLORIDE LEVEL 99.0 MMOL/L (98-107); CREATININE FOR GFR 1.12 MG/DL (0.55-1.30); GLOMERULAR FILTRATION RATE 52.9 (>39); POTASSIUM SERUM 3.9 MMOL/L (3.5-5.1); SODIUM LEVEL 132.0 MMOL/L (136-145)
== END ==
LOC: M PLALAB 12:36
PROVIDERS: ATTEND Registered Nurse
DX: K62.5 Hemorrhage of anus and rectum (principal)

== ENCOUNTER → 2025-08-29 | Outpatient (CLI) | payer MEDICARE ==
[~2025-08-29] MED LIST changes: -ALEN70TA82; +ALEN70TA82 PO; +ALIG10.5 PO; +CALCTAB89 PO; +CAPE150T18 PO; +CAPE1TAB2 PO; -CHLO125TA; +CHLO125TA PO; +CLOB0.057 TOP; +CYCL-707 PO; +D32000TA2 PO; +DEUC6TAB PO; +LOSA50TA28 PO; +MIRA3350 PO; -OMEP-173; -POTA10CA70; +POTA10CA70 PO; -ROPI0.5T33; +ROPI0.5T33 PO; +SUPE5000 PO; +[UNRECOGNIZED DRUG - OTHER]
== END ==
LOC: M WHC 13:44
DX: Z12.31 Encounter for screening mammogram for malignant neoplasm of breast (principal)

== ENCOUNTER → 2025-09-03 | Outpatient (CLI) | payer MEDICARE ==
[2025-09-03 11:25] VITALS: TEMP 99
[2025-09-03] MEDS: NS (Normal Saline) 0.9% 1,000 ML IV SCH (12:05)
[2025-09-03] MEDS: ceFAZolin SODIUM 2 GM in DEXTROSE 5% (D5W) ADV/MINI-BAG 50 ML IV ONE (12:05)
[2025-09-03] MEDS: MIDAZOLAM INJ 2 MG/2 ML VIAL IV PRN (13:15)
[2025-09-03] MEDS: LIDOCAINE 1% MDV 20 ML VIAL SC SCH (13:26)
[2025-09-03 14:00] VITALS: BP 104/57; O2SAT 99
== END ==
LOC: M IRPRO 11:08
PROVIDERS: ATTEND Specialist
DX: C50.919 Malignant neoplasm of unspecified site of unspecified female breast (principal)
CPT/HCPCS: 36561; 99152; J0688; J1642; J2250; J3010

== ENCOUNTER → 2025-09-16 | Outpatient (RCR) | payer MEDICARE ==
[~2025-09-16] MED LIST changes: +LIDO30CR18 TOP; +ONDA-284 PO; +PROC10TA5 PO
== END ==
LOC: M ONCR 08-31 10:46
PROVIDERS: ATTEND General Practice
DX: Z51.0 Encounter for antineoplastic radiation therapy (principal); C20 Malignant neoplasm of rectum

== ENCOUNTER → 2025-09-19 | Outpatient (CLI) | payer MEDICARE | LOC: M PLAIMG 14:15 | PROVIDERS: ATTEND General Practice | DX: C20 Malignant neoplasm of rectum (principal) ==

== ENCOUNTER 2025-09-25 15:21 | Emergency (ER) | payer MEDICARE ==
[~2025-09-25] VITALS: Ht 154.9 cm; Wt 52.0 kg
[2025-09-25 15:33] VITALS: TEMP 97.5
[2025-09-25] MEDS ORDERED: HEPARIN LOCK FLUSH 100 UNITS/ML 3 ML SYRINGE IV PRN (15:35)
[2025-09-25] MEDS ORDERED: SODIUM CHLORIDE 0.9% INJ 10 ML SYR IV PRN (15:35)
[2025-09-25 16:19] LABS: PLATELET COUNT, AUTOMATED 126 10^3/uL (150-450)
[2025-09-25 16:40] LABS: INR 1.36
[2025-09-25 16:54] LABS: BASOPHILS 1 % (0-1); EOSINOPHILS 5 % (0-3); LYMPHOCYTES 9 % (16-44); METAMYELOCYTES 1 % (0-0); MONOCYTES 21 % (0-5); NEUTROPHILS 46 % (28-66)
[2025-09-25 16:55] LABS: PLATELET ESTIMATE NORMAL (NORMAL)
[2025-09-25 16:59] LABS: ALT/SGPT 10.0 U/L (7.0-40); AST/SGOT 14.0 U/L (<34); CALCIUM LEVEL 7.6 MG/DL (8.3-10.6); CARBON DIOXIDE LEVEL 23.0 MMOL/L (20-31); CHLORIDE LEVEL 102.0 MMOL/L (98-107); CREATININE FOR GFR 1.23 MG/DL (0.55-1.30); GLOMERULAR FILTRATION RATE 47.0 (>39); POTASSIUM SERUM 4.8 MMOL/L (3.5-5.1); SODIUM LEVEL 132.0 MMOL/L (136-145)
[2025-09-25] MEDS: GASTROGRAFIN SOLUTION 30ML PO SCH (18:34)
[2025-09-25 18:45] VITALS: BP 121/70
[2025-09-25] MEDS: NS (Normal Saline) 0.9% 1,000 ML IV SCH (18:47)
[2025-09-25] MEDS ORDERED: ISOVUE-370 76% 100 ML VIAL As Ordered ONE (19:30)
[2025-09-25] MEDS ORDERED: IBUP600T42 PO (21:34)
[2025-09-25] MEDS ORDERED: MESA50SU PR (21:34)
[2025-09-25 21:45] VITALS: O2SAT 97
== END 2025-09-25 22:54 | disposition home or self-care (01) ==
LOC: M ED 15:21 → EDBD 15:21 → M ED 22:54
DX: K62.7 Radiation proctitis (principal); N20.0 Calculus of kidney; K44.9 Diaphragmatic hernia without obstruction or gangrene; C20 Malignant neoplasm of rectum; I70.0 Atherosclerosis of aorta; R51.9 Headache, unspecified; K21.9 Gastro-esophageal reflux disease without esophagitis; G25.81 Restless legs syndrome; F32.A Depression, unspecified; F41.9 Anxiety disorder, unspecified; Z88.0 Allergy status to penicillin; Z88.2 Allergy status to sulfonamides; Z91.0120 Allergy to eggs, unspecified; Z91.013 Allergy to seafood; Z88.8 Allergy status to other drugs, medicaments and biological substances; Z87.442 Personal history of urinary calculi; Z79.1 Long term (current) use of non-steroidal anti-inflammatories (NSAID); Z79.899 Other long term (current) drug therapy
CPT/HCPCS: 74021; 74177; 80048; 80076; 83605; 85025; 85610; 85730; 86850; 86900; 86901; 87040; 93041; 94760; 96360; 96361; 99285; Q9963; Q9967

== ENCOUNTER 2025-09-27 10:27 | Outpatient (RCR) | payer MEDICARE ==
[~2025-09-27 10:27] MED LIST changes: +BIOT5TAB5 PO; +IBUP600T42 PO; +MESA50SU PR; -SUPE5000 PO
[2025-09-29] MEDS ORDERED: IBUP600T42 PO (10:03)
== END 2025-10-04 | disposition expired ==
LOC: M ONCR 10:27
PROVIDERS: ATTEND General Practice
DX: Z51.0 Encounter for antineoplastic radiation therapy (principal); C20 Malignant neoplasm of rectum

== ENCOUNTER 2025-09-28 19:01 | Inpatient (IN) | payer MEDICARE ==
[~2025-09-28] VITALS: Ht 154.9 cm; Wt 54.2 kg
[2025-09-28 19:27] LABS: PLATELET COUNT, AUTOMATED 116 10^3/uL (150-450)
[2025-09-28] MEDS: ONDANSETRON 4MG/2ML VIAL IV ONE (19:46)
[2025-09-28 19:48] LABS: ATYPICAL LYMPH 4 % (0-5); LYMPHOCYTES 6 % (16-44); METAMYELOCYTES 2 % (0-0); MONOCYTES 10 % (0-5); NEUTROPHILS 57 % (28-66)
[2025-09-28] MEDS: MORPHINE 2 MG/ML 1 ML VIAL IV ONE ×2 (19:48→22:12)
[2025-09-28 19:49] LABS: PLATELET ESTIMATE DECREASED (NORMAL)
[2025-09-28] MEDS: ACETAMINOPHEN *IV* 1,000 MG in IV 1 EA IV ONE (19:49)
[2025-09-28] MEDS: NS (Normal Saline) 0.9% 1,000 ML IV ONE (19:49)
[2025-09-28 19:51] LABS: ALT/SGPT 9.0 U/L (7.0-40); AST/SGOT 13.0 U/L (<34); CALCIUM LEVEL 6.9 MG/DL (8.3-10.6); CARBON DIOXIDE LEVEL 18.0 MMOL/L (20-31); CHLORIDE LEVEL 95.0 MMOL/L (98-107); CREATININE FOR GFR 1.23 MG/DL (0.55-1.30); GLOMERULAR FILTRATION RATE 47.0 (>39); POTASSIUM SERUM 4.5 MMOL/L (3.5-5.1); SODIUM LEVEL 126.0 MMOL/L (136-145)
[2025-09-28 19:52] LABS: DOHLE BODIES 1+
[2025-09-28 19:57] LABS: RSV AMPLIFICATION NEGATIVE (NEGATIVE)
[2025-09-28] MEDS ORDERED: ISOVUE-370 76% 100 ML VIAL As Ordered ONE (20:17)
[2025-09-28] MEDS: MORPHINE 4 MG/ML 1 ML VIAL IV ONE (22:12)
[2025-09-28] MEDS: NS (Normal Saline) 0.9% 1,000 ML IV SCH (23:18)
[2025-09-28] MEDS: CEFEPIME HCL 2 GM in DEXTROSE 5% (D5W) ADV/MINI-BAG 50 ML IV ONE (23:18)
[2025-09-28 23:49] LABS: KETONE, URINE AUTO RFX 1+ mg/dL (NEGATIVE); NITRITE, URINE AUTO RFX NEGATIVE (NEGATIVE); RBC, URINE AUTO RFX 10 /HPF (0-3); SQUAM EPITHELIAL CELL UR AURFX 0 /HPF (0-6)
[2025-09-28 23:50] LABS: LEUKOCYTE ESTERASE UR AUTO RFX 2+ (NEGATIVE); WBC, URINE AUTO RFX 101 /HPF (0-3)
[2025-09-29 01:14] VITALS: BP 107/53; TEMP 97.8; O2SAT 96
[2025-09-29 05:54] LABS: PLATELET COUNT, AUTOMATED 103 10^3/uL (150-450)
[2025-09-29] MEDS: MORPHINE 4 MG/ML 1 ML VIAL IV PRN (06:05)
[2025-09-29 06:20] VITALS: BP 128/63; TEMP 98.4; O2SAT 95
[2025-09-29 06:23] LABS: ALT/SGPT 12.0 U/L (7.0-40); AST/SGOT 20.0 U/L (<34); CALCIUM LEVEL 6.5 MG/DL (8.3-10.6); CARBON DIOXIDE LEVEL 18.0 MMOL/L (20-31); CHLORIDE LEVEL 100.0 MMOL/L (98-107); CREATININE FOR GFR 1.02 MG/DL (0.55-1.30); GLOMERULAR FILTRATION RATE 58.8 (>39); MAGNESIUM LEVEL 2.6 MG/DL (1.8-2.4); POTASSIUM SERUM 4.9 MMOL/L (3.5-5.1); SODIUM LEVEL 130.0 MMOL/L (136-145)
[2025-09-29] MEDS: ENOXAPARIN 40 MG/0.4 ML SYRINGE (J1650 PER 10MG) SC SCH (09:39)
[2025-09-29] MEDS: LACTULOSE 20 GM/30 ML SYRUP UDC PO SCH (09:39)
[2025-09-29] MEDS: metroNIDAZOLE 500 MG in IV 1 EA IV SCH (09:39)
[2025-09-29] MEDS: FLEET OIL RETENTION ENEMA PR ONE (09:40)
[2025-09-29 10:00] VITALS: BP 102/51; TEMP 98.7; O2SAT 96
[2025-09-29] MEDS ORDERED: IBUP600T42 PO (10:03)
[2025-09-29] MEDS ORDERED: HOME MED LIST COMPLETE! XX SCH (10:05)
[2025-09-29] MEDS: CEFEPIME HCL 2 GM in DEXTROSE 5% (D5W) ADV/MINI-BAG 50 ML IV SCH (11:50)
[2025-09-29 14:00] VITALS: BP 123/57; TEMP 98.2; O2SAT 92
[2025-09-29] MEDS: ACETAMINOPHEN *IV* 1,000 MG in IV 1 EA IV SCH (16:50)
[2025-09-29 18:00] VITALS: BP 113/59; TEMP 98.4; O2SAT 94
[2025-09-29 20:38] VITALS: BP 111/56; TEMP 97.9; O2SAT 93
[2025-09-30 00:43] VITALS: BP 107/57; TEMP 97.6; O2SAT 91
[2025-09-30 06:30] VITALS: BP 96/54; TEMP 97.3; O2SAT 96
[2025-09-30 09:48] LABS: CALCIUM LEVEL 6.5 MG/DL (8.3-10.6); CARBON DIOXIDE LEVEL 17.0 MMOL/L (20-31); CHLORIDE LEVEL 108.0 MMOL/L (98-107); CREATININE FOR GFR 0.93 MG/DL (0.55-1.30); GLOMERULAR FILTRATION RATE 65.7 (>39); POTASSIUM SERUM 3.4 MMOL/L (3.5-5.1); SODIUM LEVEL 136.0 MMOL/L (136-145)
[2025-09-30 09:57] LABS: PLATELET COUNT, AUTOMATED 95 10^3/uL (150-450)
[2025-09-30 10:42] VITALS: BP 122/63; TEMP 97.5; O2SAT 97
[2025-09-30] MEDS: ONDANSETRON 4MG/2ML VIAL IV PRN (11:29)
[2025-09-30 14:24] VITALS: BP 122/63; TEMP 97.6; O2SAT 96
[2025-09-30] MEDS: AMINO AC/ELECTROLYTE/DEX/CALC 1,000 ML IV SCH (18:09)
[2025-09-30 18:49] VITALS: BP 120/63; TEMP 98; O2SAT 96
[2025-09-30 19:50] VITALS: BP 136/68; TEMP 97.2; O2SAT 95
[2025-10-01 00:32] VITALS: BP 124/67; TEMP 97.6; O2SAT 96
[2025-10-01 05:39] VITALS: BP 128/64; TEMP 97.4; O2SAT 97
[2025-10-01 06:36] LABS: PLATELET COUNT, AUTOMATED 75 10^3/uL (150-450)
[2025-10-01 06:54] LABS: CALCIUM LEVEL 6.1 MG/DL (8.3-10.6); CARBON DIOXIDE LEVEL 16.0 MMOL/L (20-31); CHLORIDE LEVEL 109.0 MMOL/L (98-107); CREATININE FOR GFR 0.85 MG/DL (0.55-1.30); GLOMERULAR FILTRATION RATE 73.2 (>39); POTASSIUM SERUM 3.3 MMOL/L (3.5-5.1); SODIUM LEVEL 136.0 MMOL/L (136-145)
[2025-10-01] MEDS: POTASSIUM CHLORIDE 10% LIQ 20MEQ/15ML UDC PO SCH (09:09)
[2025-10-01] MEDS ORDERED: NYSTATIN 100,000 UNITS/GM TOPICAL PWD 15 GM TOP PRN (09:40)
[2025-10-01] MEDS: cefTRIAXone SOD 1 GM in DEXTROSE 5% (D5W) ADV/MINI-BAG 50 ML IV SCH (10:15)
[2025-10-01] MEDS: POTASSIUM CHLORIDE 10MEQ SR TABLET PO SCH (10:15)
[2025-10-01 12:09] VITALS: BP 125/68; TEMP 98; O2SAT 97
[2025-10-01] MEDS: DOCUSATE SODIUM 100 MG CAPSULE PO SCH (13:01)
[2025-10-01] MEDS: SENNA 8.6 MG TAB PO SCH (13:02)
[2025-10-01 16:00] VITALS: BP 126/65; TEMP 98.2; O2SAT 96
[2025-10-01] MEDS: AMINO AC/ELECTROLYTE/DEX/CALC 1,000 ML IV SCH (17:38)
[2025-10-01 19:45] VITALS: BP 158/70; TEMP 97.4; O2SAT 96
[2025-10-02 00:02] VITALS: BP 141/71; TEMP 97.6; O2SAT 96
[2025-10-02 05:59] VITALS: BP 169/86; TEMP 97.2; O2SAT 94
[2025-10-02 06:16] LABS: PLATELET COUNT, AUTOMATED 108 10^3/uL (150-450)
[2025-10-02 06:42] LABS: CALCIUM LEVEL 6.6 MG/DL (8.3-10.6); CARBON DIOXIDE LEVEL 14.0 MMOL/L (20-31); CHLORIDE LEVEL 113.0 MMOL/L (98-107); CREATININE FOR GFR 0.89 MG/DL (0.55-1.30); GLOMERULAR FILTRATION RATE 69.3 (>39); MAGNESIUM LEVEL 2.4 MG/DL (1.8-2.4); PHOSPHORUS LEVEL 1.6 MG/DL (2.4-5.1); POTASSIUM SERUM 4.6 MMOL/L (3.5-5.1); SODIUM LEVEL 138.0 MMOL/L (136-145)
[2025-10-02 09:57] VITALS: BP 163/96; TEMP 98; O2SAT 94
[2025-10-02] MEDS: SODIUM PHOSPHATE INJ 20 MMOL in D5W 250 ML IV ONE (10:15)
[2025-10-02] MEDS: AMINO AC/ELECTROLYTE/DEX/CALC 2,000 ML IV SCH (17:04)
[2025-10-02 20:04] VITALS: BP 160/76; TEMP 97.9; O2SAT 94
[2025-10-03 05:55] VITALS: BP 150/82; TEMP 97.7; O2SAT 99
[2025-10-03 06:36] LABS: PLATELET COUNT, AUTOMATED 116 10^3/uL (150-450)
[2025-10-03 06:55] LABS: CALCIUM LEVEL 6.6 MG/DL (8.3-10.6); CARBON DIOXIDE LEVEL 13.0 MMOL/L (20-31); CHLORIDE LEVEL 113.0 MMOL/L (98-107); CREATININE FOR GFR 0.87 MG/DL (0.55-1.30); GLOMERULAR FILTRATION RATE 71.2 (>39); MAGNESIUM LEVEL 2.0 MG/DL (1.8-2.4); PHOSPHORUS LEVEL 2.1 MG/DL (2.4-5.1); POTASSIUM SERUM 4.1 MMOL/L (3.5-5.1); SODIUM LEVEL 140.0 MMOL/L (136-145)
[2025-10-03 10:00] VITALS: BP 142/82; TEMP 97.8; O2SAT 93
[2025-10-03 10:13] VITALS: BP 142/82; TEMP 97.2; O2SAT 93
[2025-10-03] MEDS ORDERED: ACETAMINOPHEN 325 MG TAB PO PRN (11:45)
[2025-10-03] MEDS ORDERED: ATROPINE SULFATE 1% OPHTH SOLN 2 ML BTL SL PRN (11:45)
[2025-10-03] MEDS ORDERED: SCOPOLAMINE 1MG TRANSDERMAL PATCH TOP PRN (11:45)
[2025-10-03] MEDS ORDERED: ONDANSETRON 4MG/2ML VIAL IV PRN ×2 (11:45)
[2025-10-03] MEDS: LORazepam 1 MG TAB PO PRN ×2 (13:00→15:53)
[2025-10-03] MEDS: MORPHINE 10 MG/0.5 ML ORAL CONCENTRATE SOLUTION U/D SL PRN (13:00)
[2025-10-03] MEDS ORDERED: MULTIVITAMIN -ADULT INJECTION 10 ML, ZINC/COPPER/MANGANESE/SELENIUM 1 ML in AMINO AC/EL... IV SCH (18:00)
[2025-10-03] MEDS: ONDANSETRON 4MG ORAL DISINTEGRATING TAB PO PRN (20:08)
[2025-10-03] MEDS: OLANZapine ORAL DISINTEGRATING TAB 5MG PO SCH (20:08)
[2025-10-03] MEDS: HYOSCYAMINE SULFATE 0.125 MG SUBL TABLET PO PRN (20:08)
== END 2025-10-04 09:00 | disposition expired | DRG 871 ==
LOC: EDBD 19:01 → M ED 19:01 → M ED INP 22:54 → M MS5PR 09-29 00:58
PROVIDERS: ADMIT Internal Medicine; ATTEND Student in an Organized Health Care Education/Training Program
DX: A41.9 Sepsis, unspecified organism (principal); I26.99 Other pulmonary embolism without acute cor pulmonale; C20 Malignant neoplasm of rectum; N39.0 Urinary tract infection, site not specified; K62.5 Hemorrhage of anus and rectum; K56.600 Partial intestinal obstruction, unspecified as to cause; C78.7 Secondary malignant neoplasm of liver and intrahepatic bile duct; D61.818 Other pancytopenia; E87.1 Hypo-osmolality and hyponatremia; K52.0 Gastroenteritis and colitis due to radiation; I10 Essential (primary) hypertension; M10.9 Gout, unspecified; C50.912 Malignant neoplasm of unspecified site of left female breast; D69.6 Thrombocytopenia, unspecified; R15.9 Full incontinence of feces; R19.7 Diarrhea, unspecified; B96.20 Unspecified Escherichia coli [E. coli] as the cause of diseases classified elsewhere; K62.7 Radiation proctitis; Z92.3 Personal history of irradiation; Z51.5 Encounter for palliative care; Z88.2 Allergy status to sulfonamides; Z91.013 Allergy to seafood; Z91.0120 Allergy to eggs, unspecified; Z91.018 Allergy to other foods; Z88.8 Allergy status to other drugs, medicaments and biological substances; Z79.899 Other long term (current) drug therapy